=== PATIENT | female | born 1970 | race Caucasian/White ===

== ENCOUNTER → 2019-04-26 | Outpatient (CLI) | payer BC, SELFPAY ==
--- NOTE | 2019-04-26 11:25 | BRBX_PTH ---
PATIENT: JOSÉ LUIS TRUJILLO LOC: [facility] U#:[id number] AGE/SX: 48/F ROOM: RE04/26/[address]: Dr. Glenys Beth MD : 1970 BED: DIS: 04/26/2019 SPEC #: [id number] RECD: 04/26/19 11:55 STATUS: CATRACHITO REVale #: [id number] JOANNE: 04/26/19 11:[address]: Glenys Beth DEPT: SURGICAL PATHOLOGY RECD BY: Freida Mortensen ENTERED: 04/26/19 12:29 SP TYPE: BREAST BX OTHR DR: Dr. Leslie Baugh MD Tissues: Right breast, NOS Procedures: Surgery Specimen Level IV HEADER OPERATION: Right breast stereotactic needle core biopsy PRE-OP DIAGNOSIS: Right breast calcifications, 11 o'clock anterior depth TISSUE SUBMITTED: Right breast core tissue FIXATION TIME: 6 hours MICROSCOPIC DIAGNOSIS Right breast, calcification at 11 o'clock, anterior depth, stereotactic needle core biopsy: Fibrocystic changes and intraductal hyperplasia with multifocal atypia. Frequent microcalcifications. Negative for invasive carcinoma. See comment. 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 Correlation with clinical, radiologic findings and appropriate follow up are necessary. Case has been reviewed in consultation with Dr. Richards who concurs with the above diagnosis. IDC:AM MICROSCOPIC DESCRIPTION Slides are reviewed. GROSS DESCRIPTION Received in fixative is one container labeled with the patient's name and designated right breast. The specimen consists of multiple irregular and elongated fragments of light saldana-yellow soft tissue that in aggregate measure 5 x 3 x 0.2 cm. The specimen is totally submitted in two cassettes. / AM:french 04/26/19 TC:5 CPT: 34808
--- NOTE | 2019-04-26 14:08 | PCM.OPRPT ---
Report of Operation Date of Procedure: 04/26/19 Pre-Operative Diagnosis: abnormal calcifications on right breast mammograms Post-Operative Diagnosis: same Surgery/Procedure Performed:: right stereotactic breast biopsy Description of Surgical Findings:: abnormal calcifications upper outer right breast, anterior depth Type of Anesthesia:: Local - 1% xylocaine Specimen's removed: right breast tissue Estimated Blood Loss (mL): < 1 ml Fluids Replaced: none Description of Procedure: After informed consent was given, the patient was brought into the breast biopsy suite. Appropriate time out protocol was followed. She was then placed in the prone position on the stereotactic biopsy table. The patient?s right breast was then placed in the opening at the head of the table. A coffee sampler compression mammogram was then obtained in the lateral view. The suspicious radiological lesion was then identified. Stereo pictures of the lesion were then taken for XYZ coordinates. The Mammotome biopsy stylus was then positioned where it would be entering into the patient?s breast. The skin at this site was then cleansed with a surgical skin preparation. The skin and subcutaneous tissues at this site were then infiltrated with 1% xylocaine. A small skin incision was made with an 11 blade scalpel. The biopsy stylus was then positioned into the patient?s breast at the proper coordinates of depth. Using the Mammotome vacuum-assist device, several core samples of breast tissue were obtained. A specimen mammogram was the obtained and revealed that the calcifications were within the specimen. A hemostatic marker clip was then placed into the biopsy cavity and a coffee sampler film revealed that it was properly deployed. The patient was then placed in the supine position and pressure was applied to the breast until no active bleeding was noted. A suture was placed of 3-0 nylon to reapproximate the skin. A unilateral mammogram in the CC and MLO view were then taken which revealed that the marker clip was in the same area as the previous suspicious lesion. The patient tolerated the procedure well and was discharged from the breast biopsy suite in good condition. - Complications none noted
--- NOTE | 2019-04-26 14:12 | OP.PCM_ITS ---
Report of Operation Date of Procedure: 04/26/19 Pre-Operative Diagnosis: abnormal calcifications on right breast mammograms Post-Operative Diagnosis: same Surgery/Procedure Performed:: right stereotactic breast biopsy Description of Surgical Findings:: abnormal calcifications upper outer right breast, anterior depth Type of Anesthesia:: Local - 1% xylocaine Specimen's removed: right breast tissue Estimated Blood Loss (mL): < 1 ml Fluids Replaced: none Description of Procedure: After informed consent was given, the patient was brought into the breast biopsy suite. Appropriate time out protocol was followed. She was then placed in the prone position on the stereotactic biopsy table. The patient?s right breast was then placed in the opening at the head of the table. A manufacturer compression mammogram was then obtained in the lateral view. The suspicious radiological lesion was then identified. Stereo pictures of the lesion were then taken for XYZ coordinates. The Mammotome biopsy stylus was then positioned where it would be entering into the patient?s breast. The skin at this site was then cleansed with a surgical skin preparation. The skin and subcutaneous tissues at this site were then infiltrated with 1% xylocaine. A small skin incision was made with an 11 blade scalpel. The biopsy stylus was then positioned into the patient?s breast at the proper coordinates of depth. Using the Mammotome vacuum-assist device, several core samples of breast tissue were obtained. A specimen mammogram was the obtained and revealed that the calcifications were within the specimen. A hemostatic marker clip was then placed into the biopsy cavity and a manufacturer film revealed that it was properly deployed. The patient was then placed in the supine position and pressure was applied to the breast until no active bleeding was noted. A suture was placed of 3-0 nylon to reapproximate the skin. A unilateral mammogram in the CC and MLO view were then taken which revealed that the marker clip was in the same area as the previous suspicious lesion. The patient tolerated the procedure well and was discharged from the breast biopsy suite in good condition. - Complications none noted
== END | disposition home or self-care (01) ==
PROVIDERS: Family Provider Internal Medicine; PCP Internal Medicine; Referring Provider Surgery; Visit Provider Surgery
DX: N60.11 Diffuse cystic mastopathy of right breast (principal); N60.91 Unspecified benign mammary dysplasia of right breast; R92.0 Mammographic microcalcification found on diagnostic imaging of breast
CPT/HCPCS: 19081; 88305; J7050

== ENCOUNTER 2019-05-03 11:26 | Day surgery (SDC) | payer BC, SELFPAY ==
--- NOTE | 2019-05-02 15:02 | PCM.HP.BLA ---
History and Physical Date of Admission: 05/03/19 Courtney Pelletier 1970 REFERRING PHYSICIAN: Leandra Butler ([facility]), APR* CHIEF COMPLAINT: Consult (Rt breast calcification) HPI: The patient is a 48 year old female presents with abnormal right breast mammograms. Denies palpable breast masses. Denies nipple discharge. Denies breast pain. Denies previous breast biopsy. Mammograms left 04/07/19 There are a grouped pleomorphic calcifications in the right breast at 11 o'clock anterior depth. Stereotactic biopsy rec'd. ? S/p stereotactic breast biopsy 04/26/19 ? findings of intraductal hyperplasia with multifocal atypia I have recommended wire localization wide local excision right breast biopsy. PAST MEDICAL HISTORY ? Abnormal glandular Papanicolaou smear of cervix Abn. Pap smear (cervix) PAST SURGICAL HISTORY ? CERVIX UTERI CONIZA LP ELCTRO EXCI 02/20/01 LEEP-Cervix ? COLONOSCOP W/ OR W/O BRSH SPEC 03/29/2019 Colonoscopy ? D&C, DIAG AND/OR THERAPEUTIC Dilation & curettage ? ENLARGE BREAST [address] [facility] [address]Daniel Bill ? LIGATE FALLOPIAN TUBE ? PAST SURGICAL HISTORY OF age 13-16 KNEE SURGERY-left MEDICATIONS: denies ALLERGIES: Patient has no known allergies. 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 Heart Mother OR-CABG ? other (liver failure - to get transplant) Mother ? Hypertension Maternal Grandmother ? Heart Maternal Grandmother HEART SURGERY ? Breast Cancer Paternal Grandmother ? Breast Cancer Paternal Aunt ? Cervical Cancer Other Maternal Niece REVIEW OF SYSTEMS: General - denies fevers Cardiovascular - has chest pain Pulmonary - has shortness of breath Gastrointestinal - denies abdominal pain Neurological - has chronic headaches, denies seizures Genitourinary - has had UTIs in past, has had kidney stones in past, denies burning with urination Hematological - denies spontaneous/prolonged bleeding Skin - denies nonhealing skin wounds Musculoskeletal - has chronic back pain, has sciatica, has knots in neck Endocrine - denies diabetes Psychological ? denies hallucinations Obstetrical - menarche onset at age 12, , first at age 15, BCP use at age 15 for about 15 years intermittently, breast feeding for about 24 months, LMP in October then in March, denies HRT use PHYSICAL EXAMINATION: General: The patient is 48 year old female, well nourished, well hydrated in no acute distress. The patient is oriented to time, place, and person. VITALS: Ht: 5' 5.5 Wt: 157# Head ? Normocephalic. EOM intact with sclera clear and no icterus noted. Mouth with mucus membranes moist. Neck - supple with no jugular venous distention noted. Trachea is midline. No carotid bruits noted. No thyroid enlargement or thyroid nodules detected. No masses noted. Chest/breast ? no asymmetry of breasts noted, no suspicious skin lesions noted, no nipple discharge and both nipples everted, no breast masses noted Lungs ? clear to auscultation. Normal breath sounds. No rales/rhonchi/wheezing noted. No labored breathing noted, such as retractions. No cough heard. Heart ? normal S1 and S2 auscultated. No rubs/clicks/murmurs noted. Regular rate. Abdomen ? soft and benign. Normal bowel sounds. No abdominal bruits noted. No distention noted. No masses noted. Extremities ? no calf tenderness noted. No pitting edema noted. . Skin ? normal skin integrity. Lymph ? no cervical adenopathy detected, no supraclavicular adenopathy detected, no axillary adenopathy detected Neurological ? gait normal, no focal deficits noted Psych ? calm and appropriate RADIOLOGIC STUDIES: As Noted IMPRESSION: right breast ? intraductal hyperplasia with atypia. PLAN: I have discussed the above with the patient and her who is present with her. I have recommended right breast biopsy ? wide local excision via wire localization. I have explained the procedure to the patient. I have counseled the patient as to the risks of the procedure, including but not limited to: infection, bleeding, injury to any blood vessels/nerves, scar tissue, wound infections, complications of anesthesia, etc. ? the patient understands. The patient wishes to proceed. I have answered all questions to the patient?s satisfaction and the patient has no further questions.
--- NOTE | 2019-05-03 11:30 | BI_ITS ---
SURGICAL BREAST SPECIMEN RADIOGRAPH CLINICAL: Document presence of tissue clip marker in biopsy specimen. FINDINGS: Specimen shows presence of tissue clip marker. Electronically Signed: Edmond Wang, at 15:11 EDT , Service support , BI/Breast Biopsy Specimen
[2019-05-03 12:46] VITALS: BP 106/68; PULSE 62; RESP 16; TEMP 37.2; O2SAT 98; BMI 26.4
--- NOTE | 2019-05-03 13:55 | PCM.DC.BS ---
Discharge Diet: No Restrictions Discharge Activity: Return to Normal Activity, May not drive while taking narcotic pain medications. Lifting Restrictions: no lifting greater than 10 pounds with right arm Call your doctor if your incision/area has: Continuous Slow Oozing, Foul Smelling Discharge Call your doctor if you observe: Fever of 101 or Higher Additional Dressing/Incision Instructions:: Leave dressings in place. May get wet in shower. Do not soak - no tub baths/swimming. Wear supportive bra during the day Allergies/Adverse Reactions: Allergies No Known Allergies Allergy (Verified 04/30/19 14:54) Medications to take at Discharge Advocare 1 tab PO 4X/DAY 04/30/19 Hydrocodone Bitart/Apap 5-325 [[place] 5MG-325MG] 1 tab PO Q8H PRN PRN 5 Days #15 tab 05/03/19 The following prescriptions were given: Hydrocodone Bitart/Apap 5-325 [[place] 5MG-325MG] 1 tab PO Q8H PRN PRN 5 Days #15 tab PRN Reason: Pain Primary Care Physician: Leslie Baugh MD [Primary Care Provider] - Please Follow Up With: Glenys Beth MD - call When: to be seen in 7-10 days, please call for date and time, thank you
--- NOTE | 2019-05-03 13:59 | DCINST_ITS ---
Discharge Diet: No Restrictions Discharge Activity: Return to Normal Activity, May not drive while taking narcotic pain medications. Lifting Restrictions: no lifting greater than 10 pounds with right arm Call your doctor if your incision/area has: Continuous Slow Oozing, Foul Smelling Discharge Call your doctor if you observe: Fever of 101 or Higher Additional Dressing/Incision Instructions:: Leave dressings in place. May get wet in shower. Do not soak - no tub baths/swimming. Wear supportive bra during the day Allergies/Adverse Reactions: Allergies No Known Allergies Allergy (Verified 04/30/19 14:54) Medications to take at Discharge Advocare 1 tab PO 4X/DAY 04/30/19 Hydrocodone Bitart/Apap 5-325 [[place] 5MG-325MG] 1 tab PO Q8H PRN PRN 5 Days #15 tab 05/03/19 The following prescriptions were given: Hydrocodone Bitart/Apap 5-325 [[place] 5MG-325MG] 1 tab PO Q8H PRN PRN 5 Days #15 tab PRN Reason: Pain Primary Care Physician: Leslie Baugh MD [Primary Care Provider] - Please Follow Up With: Glenys Beth MD - call When: to be seen in 7-10 days, please call for date and time, thank you
--- NOTE | 2019-05-03 13:59 | PCM.OPRPT ---
Report of Operation Date of Procedure: 05/03/19 Pre-Operative Diagnosis: atypical ductal hyperplasia of right breast Post-Operative Diagnosis: same Surgery/Procedure Performed:: wide local excision right breast biopsy via wire localization Description of Surgical Findings:: patient with bilateral breast implants, upper outer quadrant lesion Type of Anesthesia:: Local MAC Anesthesiologist: Denver Frost Specimen's removed: right breast tissue Estimated Blood Loss (mL): < 10 ml Fluids Replaced: 700 cc RL Description of Procedure: After informed consent was given, the patient was brought into the Breast Stereotactic Radiology suite and placed in the prone position on the [place] stereotactic table. The patient?s right breast was placed in the opening at the head of the table. A welding machine tender compression mammogram was then obtained in the lateral view. The marker clip that was previously placed was identified. Stereo pictures of the lesion were then taken for XYZ coordinates. The Kopans needle was then positioned where it would be entering into the patient?s breast. The skin at this site was then cleansed with a surgical skin preparation. The skin and subcutaneous tissues at this site were then infiltrated with 1% xylocaine. The Kopans needle was then positioned into the patient?s breast at the proper coordinates of depth. A welding machine tender film was obtained which revealed the wire in proper position. The patient was then placed in the supine position and the wire was taped into place. A unilateral mammogram in the CC and MLO view were then taken for use in the OR. The patient tolerated this portion of the procedure well and was brought to the AC awaiting surgery in the OR. The patient was then brought to the Operating Room and placed on the operating table in the supine position. A wire had already been placed in the stereotactic biopsy room in the radiology department as described above. The left breast with the wire in placed was then prepped with a sterile surgical skin preparation and sterile surgical drapes were placed. The skin and subcutaneous tissues at the site of the breast lesion was then infiltrated with 1% xylocaine with epinephrine. A transverse curvilinear skin incision was then made with a 15 blade scalpel and carried down through to the subcutaneous tissues. Hemostasis was controlled with electrocautery. The wire was then palpated out and brought into the wound from outside. The breast tissue surrounding the wire was then carefully palpated out and from the surrounding tissues using electrocautery. The breast tissue, once from the breast, was then forwarded to the radiology department, where a specimen mammogram revealed that the lesion was within the specimen. The breast tissue was then forwarded to pathology for analysis. The wound cavity was carefully examined. No further suspicious tissue was palpated or visualized. Hemostasis was carefully controlled with electrocautery. The subdermal tissues were then approximated with vicryl suture. The incision was then reapproximated close using running monocryl suture. Cavilon and steristrips were then placed to reinforce the skin closure. A sterile dressing was then applied. The patient was then brought to the Recovery Room in stable condition. - Complications none noted - Admit VTE Documentation VTE Present on Admission: Yes VTE Mechan Device Prophylaxis: SCD's
[2019-05-03] MEDS: Cefazolin 2 GM in 0.9% Normal Saline 100 ML IV (14:04)
[2019-05-03] MEDS: Bupiv/Epi 0.25% 30 ML Vial (14:17)
--- NOTE | 2019-05-03 14:43 | MASS_PTH ---
PATIENT: JOSÉ LUIS TRUJILLO LOC: [facility] – [place], [place] U#:[id number] AGE/SX: 48/F ROOM: RE05/03/[address]: Dr. Glenys Beth MD : 1970 BED: DIS: 05/03/2019 SPEC #: [id number] RECD: 05/03/19 14:52 STATUS: CATRACHITO REVale #: [id number] JOANNE: 05/03/19 14:[address]: Glenys Beht DEPT: SURGICAL PATHOLOGY RECD BY: Basim Myers ENTERED: 05/04/19 09:13 SP TYPE: Mass OTHR DR: Dr. Leslie Baugh MD Tissues: Right breast, NOS Procedures: Surgery Specimen Level V HEADER OPERATION: Right breast lumpectomy, needle localization PRE-OP DIAGNOSIS: Right breast intraductal hyperplasia with atypia TISSUE SUBMITTED: Right breast mass MICROSCOPIC DIAGNOSIS Right breast mass, lumpectomy with needle localization: Fibrocystic changes and intraductal hyperplasia with multifocal atypia. Changes consistent with previous biopsy site. Negative for malignancy. See comment. SJ:french 05/05/19 COMMENT The atypia approaches close to the carcinoma in situ. Please make reference to previous specimen ([id number]) right breast, calcification at 11 o'clock, anterior depth, stereotactic needle core biopsy with diagnosis of fibrocystic changes and intraductal hyperplasia with multifocal atypia. Case has been reviewed in consultation with Dr. Richards who concurs with the above diagnosis. IDC:AM MICROSCOPIC DESCRIPTION Slides are reviewed. GROSS DESCRIPTION Received fresh and postfixed in formalin labeled with the patient's name and designated right breast mass. The specimen consists of an unoriented piece of saldana-yellow fibroadipose tissue with needle localization. The specimen shows two sutures on one margin, opposite margin shows a single suture, and one double suture on one of the margin. The surface with double suture is inked red and opposite margin marked by single suture is inked orange. The margin with two sutures is inked blue and opposite surface is inked green. Another unidentified margin is inked yellow and opposite is inked black. Serial sections reveal a biopsy cavity. The rest of the surface shows saldana-yellow adipose surfaces mixed with scant fibrous area. No obvious mass lesion is identified. The entire specimen is submitted in nine cassettes from one end to another end. / SJ:rg 05/04/19 TC:5 CPT: 14852
[2019-05-03 15:06] VITALS: BP 106/68; BP 113/62; PULSE 67; RESP 16; TEMP 36.4; O2SAT 98
[2019-05-03 15:15] VITALS: BP 106/68; BP 114/64; PULSE 61; RESP 16; O2SAT 98
[2019-05-03 15:30] VITALS: BP 106/68; BP 108/70; PULSE 64; RESP 16; TEMP 36.4; O2SAT 100
[2019-05-03] MEDS: HYDROcodone Bitartrate/Apap 5/325 Tablet PO (15:49)
[2019-05-03 16:36] VITALS: BP 106/68; BP 91/57; PULSE 60; RESP 16; TEMP 36.8; O2SAT 97
== END 2019-05-03 16:39 | disposition home or self-care (01) ==
LOC: SDC 11:31 → AC 11:32
PROVIDERS: Family Provider Internal Medicine; PCP Internal Medicine; Referring Provider Surgery; Visit Provider Surgery
PROC: (CPT 19301; principal; 2019-05-03 14:15)
DX: N60.91 Unspecified benign mammary dysplasia of right breast (principal); R92.1 Mammographic calcification found on diagnostic imaging of breast; Z98.82 Breast implant status; Z87.891 Personal history of nicotine dependence; Z80.3 Family history of malignant neoplasm of breast
CPT/HCPCS: 00400; 19301; 19281; 76098; 88307; J7120; A4216; J2405